=== PATIENT | female | born 1980 | race Caucasian/White ===

== ENCOUNTER 2021-02-20 16:41 | Emergency (ER) | payer BC ==
[~2021-02-20] VITALS: Ht 157.5 cm; Wt 77.1 kg
[2021-02-20 16:46] VITALS: BP_SYST 146
[2021-02-20 18:06] LABS: BILIRUBIN,URINE 1+ (NEGATIVE); BLOOD, URINE 2+ (NEGATIVE); COLOR,URINE YELLOW (YELLOW); GLUCOSE,URINE NEGATIVE (NEGATIVE); KETONES,URINE NEGATIVE (NEGATIVE); LEUKOCYTE ESTERASE ,URINE NEGATIVE (NEGATIVE); NITRITE, URINE NEGATIVE (NEGATIVE); PROTEIN URINE NEGATIVE (NEGATIVE); UROBILINOGEN,URINE 0.2 (0.2-1.0)
[2021-02-20 18:09] LABS: CLARITY/URINE HAZY (CLEAR)
[2021-02-20 18:17] LABS: RBC,URINE 0-3 /HPF (0-3)
[2021-02-20 18:18] LABS: BACTERIA,URINE FEW /HPF (None Seen); WBC,URINE 0-3 /HPF (0-3)
[2021-02-20 18:19] LABS: MUCUS,URINE 2+ /LPF (None Seen)
[2021-02-20 18:32] LABS: BASOPHILS % (AUTO) 0.5 % (0.0-2.0); EOSINOPHILS # (AUTO) 0.1 K/uL (0.0-0.4); EOSINOPHILS % (AUTO) 1.8 % (0.0-4.0); HEMATOCRIT 32.6 % (36-48); HEMOGLOBIN 10.8 g/dL (12.0-16.0); LYMPHOCYTES # (AUTO) 2.2 K/uL (1.0-5.5); LYMPHOCYTES % (AUTO) 32.3 % (20.5-51.5); MEAN CORPUSCULAR HEMOGLOBIN 27 pg (27-31); MEAN CORPUSCULAR HGB CONC 33 % (32-36); MEAN CORPUSCULAR VOLUME 81 fL (79.0-98.0); MONOCYTES # (AUTO) 0.5 K/uL (0.0-1.0); MONOCYTES % (AUTO) 6.7 % (1.7-9.3); NEUTROPHILS % (AUTO) 58.7 % (40.0-70.0); PLATELET COUNT (AUTO) 286 K/uL (130-430); RED BLOOD CELL COUNT(AUTO) 4.03 MIL/uL (4.2-6.2); RED CELL DISTRIBUTION WIDTH 15.5 % (9.0-15.0); WHITE BLOOD COUNT (AUTO) 6.7 K/uL (4.8-10.8)
[2021-02-20 18:36] LABS: CALCIUM 9.4 mg/dL (8.4-11.0); CREATININE 0.86 mg/dL (0.55-1.30)
[2021-02-20 18:42] LABS: ALBUMIN 3.7 g/dL (3.4-4.8); TOTAL BILIRUBIN 0.3 mg/dL (0.0-1.0)
[2021-02-20] MEDS ORDERED: cefTRIAXone 1 GM in LIDOCAINE 1%, 20 ML MDV 2.1 ML IM ONE (19:45)
[2021-02-20] MEDS ORDERED: IBUPROFEN 400 MG TABLET PO ONE (19:45)
[2021-02-20] MEDS ORDERED: CEPH500C2 PO (19:46)
[2021-02-20 20:30] VITALS: BP_SYST 136
== END 2021-02-20 20:30 | disposition home or self-care (01) ==
LOC: SED 16:41
DX: N39.0 Urinary tract infection, site not specified (principal); Z88.8 Allergy status to other drugs, medicaments and biological substances; Z79.899 Other long term (current) drug therapy
CPT/HCPCS: 36415; 74018; 80053; 81000; 81025; 85025; 96372; 99284; J0696; J2001

== ENCOUNTER 2023-06-09 04:53 | Emergency (ER) | payer BC ==
[~2023-06-09] VITALS: Ht 157.5 cm; Wt 79.4 kg
[~2023-06-09 04:53] MED LIST: CEPH-548 PO
[2023-06-09 05:04] VITALS: BP_SYST 143; PULSE 77; RESP 16; TEMP 97.7; O2SAT 96
[2023-06-09] MEDS ORDERED: ASPIRIN 325 MG TABLET PO ONE (05:15)
[2023-06-09 05:54] LABS: BASOPHILS % (AUTO) 0.7 % (0.0-2.0); EOSINOPHILS # (AUTO) 0.1 K/uL (0.0-0.4); EOSINOPHILS % (AUTO) 2.8 % (0.0-4.0); HEMATOCRIT 34.3 % (36-48); HEMOGLOBIN 11.4 g/dL (12.0-16.0); LYMPHOCYTES % (AUTO) 38.2 % (20.5-51.5); MEAN CORPUSCULAR HEMOGLOBIN 31 pg (27-31); MEAN CORPUSCULAR HGB CONC 33 % (32-36); MEAN CORPUSCULAR VOLUME 92 fL (79.0-98.0); MONOCYTES # (AUTO) 0.4 K/uL (0.0-1.0); MONOCYTES % (AUTO) 8.4 % (1.7-9.3); NEUTROPHILS # (AUTO) 2.7 K/uL (1.8-7.7); NEUTROPHILS % (AUTO) 49.9 % (40.0-70.0); PLATELET COUNT (AUTO) 299 K/uL (130-430); RED BLOOD CELL COUNT(AUTO) 3.75 MIL/uL (4.2-6.2); WHITE BLOOD COUNT (AUTO) 5.3 K/uL (4.8-10.8)
[2023-06-09 06:04] LABS: ANION GAP 13 (5-15); CALCIUM 8.8 mg/dL (8.4-11.0); CARBON DIOXIDE 23 mmol/L (23-29); CHLORIDE 103 mmol/L (98-107); CREATININE 0.69 mg/dL (0.55-1.30); GFR AFRICAN AMERICAN 119 mL/min (>90); GLUCOSE 119 mg/dL (74-106); POTASSIUM 3.8 mmol/L (3.5-5.1); SODIUM SERUM 139 mmol/L (136-145); UREA NITROGEN, BLOOD 13 mg/dL (8-21)
[2023-06-09 06:07] LABS: ALANINE AMINOTRANSFERASE 61 U/L (12-78); ALBUMIN 3.7 g/dL (3.4-4.8); ASPARTATE AMINOTRANSFERASE 28 U/L (10-37); TOTAL BILIRUBIN 0.3 mg/dL (0.0-1.0); TOTAL PROTEIN, SERUM 7.8 g/dL (6.4-8.3)
[2023-06-09 06:58] LABS: GFR NON AFRICAN-AMERICAN 98 mL/min (>90)
[2023-06-09] MEDS ORDERED: KETOROLAC TROMETHAMINE 15 MG VIAL IM ONE (07:15)
[2023-06-09] MEDS ORDERED: LIDOCAINE PATCH 5% 1 EA TP ONE (07:15)
[2023-06-09] MEDS ORDERED: IBUP-1969 PO (07:49)
[2023-06-09] MEDS ORDERED: KETOROLAC TROMETHAMINE 30 MG VIAL IM ONE (08:00)
[2023-06-09 08:55] VITALS: BP_SYST 143; PULSE 74; RESP 18; TEMP 97.7; O2SAT 97
== END 2023-06-09 08:56 | disposition home or self-care (01) ==
LOC: SED 04:53
DX: R07.9 Chest pain, unspecified (principal); M79.602 Pain in left arm; I10 Essential (primary) hypertension; Z88.2 Allergy status to sulfonamides; Z79.899 Other long term (current) drug therapy
CPT/HCPCS: 99285; 71045; 80053; 85025; 84484; 36415; 93005; 96372; J1885